=== PATIENT | female | born 1935 | race Caucasian/White ===

== ENCOUNTER 2017-11-11 10:27 | Emergency (ER) | payer MEDICARE, OTHER, SELFPAY ==
[2017-11-11 10:32] VITALS: BP 181/80; PULSE 73; RESP 18; TEMP 37.1; O2SAT 95; BMI 24.0
--- NOTE | 2017-11-11 11:03 | DI.RAD.S_ITS ---
PROCEDURE: XR KNEE LT 3V INDICATIONS: trauma TECHNIQUE: 3 views of the knee were acquired. COMPARISON: None. FINDINGS: Bones: No fractures or dislocations. No suspicious bony lesions. Soft tissues: No joint effusion. No suspicious soft tissue calcifications. Soft tissue swelling is present anteriorly and medially. IMPRESSION: 1. Anteromedial soft tissue injury/hematoma. 2. No acute fracture. No osseous lesion. If clinical suspicion and/or symptoms persist, further assessment with repeat plainfilms, or advanced imaging (e.g., CT, MRI, or bone scan) may be helpful for further assessment. Dictated by: Taj Merino M.D. on 11/11/2017 at 11:30 Approved by: Taj Merino M.D. on 11/11/2017 at 11:30
--- NOTE | 2017-11-11 11:03 | DI.CT.S_ITS ---
PROCEDURE: CT HEAD/BRAIN WO CON INDICATIONS: s/p fall w/ left orbital rim laceration TECHNIQUE: Noncontrast 4.5 mm thick angled axial sections acquired from the foramen magnum to the vertex, with coronal and sagittal reformats. For radiation dose reduction, the following was used: automated exposure control, adjustment of mA and/or kV according to patient size. COMPARISON: [facility], CT, HEAD WITHOUT CONTRAST, 03/18/2017, 11:54. FINDINGS: Image quality: Excellent. CSF spaces: Basal cisterns are patent. No extra-axial fluid collections. The ventricles are symmetric in size and shape. Brain: No intracranial bleeds or masses. Prominent perivascular space versus chronic infarct within the right basal ganglia is unchanged. There is cerebral volume loss for age, with resultant ventricular and sulcal prominence. There are periventricular and deep white matter chronic small vessel ischemic changes. There is intracranial internal carotid artery atherosclerosis. Skull and face: Calvarium and visualized facial bones appear intact, without suspicious lesions. Sinuses: No change in complete opacification of visualized portions of right maxillary sinus. Visualized sinuses and mastoids are otherwise clear. IMPRESSION: 1. No acute intracranial abnormality. 2. No evidence of left orbital fracture. 3. No change in right maxillary sinus opacification. Dictated by: Taj Merino M.D. on 11/11/2017 at 11:53 Approved by: Taj Merino M.D. on 11/11/2017 at 11:54
--- NOTE | 2017-11-11 11:03 | DI.RAD.S_ITS ---
PROCEDURE: XR CHEST 2V INDICATIONS: s/p fall w/ left sided chest pain TECHNIQUE: 2 views of the chest were acquired. COMPARISON: [facility], CT, HEAD WITHOUT CONTRAST, 03/18/2017, 11:54. [facility], CR, CHEST 1 VIEW, 06/18/2016, 17:12. FINDINGS: Surgical changes and devices: None. Lungs and pleura: No pleural effusions or pneumothorax. Lungs are clear. Mediastinum: Mediastinal contours are normal. Heart size is enlarged. Bones and chest wall: No suspicious bony abnormalities. Soft tissues appear unremarkable. IMPRESSION: No acute process. Dictated by: Taj Merino M.D. on 11/11/2017 at 11:30 Approved by: Taj Merino M.D. on 11/11/2017 at 11:31
[2017-11-11] MEDS: ACETAMINOPHEN 325 MG TABLET 650 MG PO (11:56)
[2017-11-11 12:16] VITALS: BP 166/76; PULSE 60; RESP 15; O2SAT 97
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
[2017-11-11] MEDS: HYDROCODONE/ACET 10/325 TABLET 1 TAB PO (13:44)
[2017-11-11] MEDS: TET,DIPH,PERTUSS(ACELL),VAC/PF 0.5 ML SYRINGE IM (13:44)
[2017-11-11 14:09] VITALS: BP 160/79; PULSE 62; RESP 14; O2SAT 99
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
== END 2017-11-11 14:30 | disposition home or self-care (01) ==
PROVIDERS: Emergency Provider Emergency Medicine; PCP Family Medicine
DX: S01.81XA Laceration without foreign body of other part of head, initial encounter (principal); S80.02XA Contusion of left knee, initial encounter; W18.30XA Fall on same level, unspecified, initial encounter
CPT/HCPCS: 70450; 71046; 73562; 90471; 99283; 90715